=== PATIENT | male | born 1960 | race Caucasian/White ===

== ENCOUNTER 2021-08-04 08:43 | Outpatient (CLI) | payer BC, SELFPAY ==
--- NOTE | ~2021-08-04 | CT_ITS ---
EXAMINATION: CT lung screening EXAM DATE: 08/04/2021 09:00 INDICATION: Z72.0 - Tobacco use. TECHNIQUE: Spiral low dose CT of the chest without contrast. Axial, coronal and sagittal images were reviewed. The dose-length product (DLP) for this examination was 365.72 mGy-cm. The exposure was t ailored according to patient size (auto mA exposure control), and iterative reconstruction (ASIR) was used as additional dose reduction technique. Comparison is made to prior examination from 04/25/2019 . FINDINGS: Previously seen right upper lobe 3 mm nodule no longer identified. No new or suspicious pu lmonary nodules. Tracheobronchial tree is patent. There is no mediastinal, hilar or axillary lymph adenopathy. There are no pleural or pericardial effusions. There is no pneumothorax. Heart norm al in size. There is mild coronary arterial calcification, arterial sclerosis. Nodular liver contou r suspicious for cirrhosis. There is splenomegaly, probably portal hypertension. There is thoracic sp ondylosis without osteoblastic or osteolytic lesions identified. IMPRESSION: 1. Lung-RADS category 1S, benign appearance or behavior (<1% chance of malignancy); recommend continu ed LDCT screening in 1 year. 2. Cirrhosis, portal hypertension splenomegaly. Reviewed, dictated and finalized at location B. 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 Lung-RADS category 1S, benign appearance or behavior (<1% chance of malignan cy); recommend continued LDCT screening in 1 year. 2. Cirrhosis, portal hypertension splenomegaly.
== END 2021-08-04 08:44 | disposition home or self-care (01) ==
LOC: ANHIMG 08:45
PROVIDERS: PCP Internal Medicine; Visit Provider Nurse Practitioner
DX: Z12.2 Encounter for screening for malignant neoplasm of respiratory organs (principal); Z72.0 Tobacco use; K74.60 Unspecified cirrhosis of liver; K76.6 Portal hypertension; R16.1 Splenomegaly, not elsewhere classified
CPT/HCPCS: 71271

== ENCOUNTER 2021-08-14 01:27 | Day surgery (SDC) | payer BC, SELFPAY ==
[2021-07-31 13:12] VITALS: BMI 38.7
--- NOTE | 2021-08-13 14:33 | PM.HPGS ---
History of Present Illness History of Present Illness Consent: Risks, benefits, and alternatives have been discussed and questions answered. Patient agrees to proceed with procedure. Chief complaint: neoplasm screening Narrative: Jeremiah Anderson is a 61 year old male referred for colon cancer screening. Review of Systems Review of Systems: All systems reviewed & are unremarkable except as noted in HPI and below PMFSH Past Medical History Medical History Acid reflux Bronchitis Chicken pox Diabetes mellitus Heartburn HLD (hyperlipidemia) Hypertension Hypothyroidism Migraines Osteoarthritis Splenomegaly Thrombocytopenia Tobacco abuse Surgical History Surgical History History of cardiac cath S/P LASIK surgery of both eyes Family History Family History Sibling Patient's sister is in good health Mother Hypertension Myocardial infarction Heart disease Lung cancer Diabetes mellitus Father Lung cancer Social History Social History Smoking status: Current every day smoker Tobacco type: e-cigarettes/vaping Smoking end date: 06/28/11 Additional smoking assessment comments: Former cigarrette smoker now vapes Alcohol intake: current Alcohol use details: 2x weekly Substance use: never Living arrangements: with family Spiritual care concerns: No Meds Home Medications and Allergies Home Medications Medication Instructions Recorded Confirmed Type lisinopril 20 1 tablet PO DAILY #90 tablet 07/28/21 07/31/21 Rx mg-hydrochlorothiazide 25 mg tablet Allergies Allergy/AdvReac Type Severity Reaction Status Date / Time Penicillins Allergy Unknown Swelling Verified 08/14/21 09:08 of Lip/Tongue/Throat Exam Resp: Auscultation: clear to auscultation bilaterally Cardio: Rate: regular rate Rhythm: regular rhythm GI: GI Palp: Yes Soft to palpation and No Tenderness to palpation present (GI) Assessment and Plan Assessment and plan (1) Screening for colon cancer: Code(s): Z12.11 - Encounter for screening for malignant neoplasm of colon Status: Acute Assessment and Plan: Colonoscopy with possible biopsy or polypectomy or cautery or injection of substances.
[2021-08-14 09:09] VITALS: BP 144/75; PULSE 88; RESP 18; TEMP 36.2; O2SAT 99
[2021-08-14] MEDS: LACTATED RINGERS 1,000 ML 150 ML IV CONT (09:17)
--- NOTE | 2021-08-14 09:23 | WPDANESEPPF ---
Anes - Initial Pre Proc Eval Procedure: Operation Date: 08/14/21 10:15 Proposed Procedures p Screening Colonoscopy - Parviz Escalante MD Date/Time: 08/14/21 09:23 Surgeon: Parviz Escalante MD Pre Op Diagnosis: neoplasm screening Patient Data Age: 61 Gender: M Height: 1.7 m Weight: 110.1 kg Last Vital Signs Temp 36.2 C L 08/14/21 09:09 Pulse 88 08/14/21 09:09 Resp 18 08/14/21 09:09 BP 144/75 H 08/14/21 09:09 Pulse Ox 99 08/14/21 09:09 Allergies Allergy/AdvReac Type Severity Reaction Status Date / Time Penicillins Allergy Unknown Swelling Verified 08/14/21 09:08 of Lip/Tongue/Throat Home Medications Medication Instructions Recorded Confirmed Type lisinopril 20 1 tablet PO DAILY #90 tablet 07/28/21 07/31/21 Rx mg-hydrochlorothiazide 25 mg tablet Patient hx anesthesia problems: none Family hx anesthesia problems: none Results Review: All pre-operative results and documents have been reviewed as part of the pre-operative evaluation. [facility] Past Medical History Medical History Acid reflux Bronchitis Chicken pox Diabetes mellitus Heartburn HLD (hyperlipidemia) Hypertension Hypothyroidism Migraines Osteoarthritis Splenomegaly Thrombocytopenia Tobacco abuse Surgical History Surgical History History of cardiac cath S/P LASIK surgery of both eyes Family History Family History Sibling Patient's sister is in good health Mother Hypertension Myocardial infarction Heart disease Lung cancer Diabetes mellitus Father Lung cancer Social History Social History Smoking status: Current every day smoker Tobacco type: e-cigarettes/vaping Smoking end date: 06/28/11 Additional smoking assessment comments: Former cigarrette smoker now vapes Alcohol intake: current Alcohol use details: 2x weekly Substance use: never Living arrangements: with family Spiritual care concerns: No Anes - Eval Final PreProcedure Day of Procedure 08/14/21 09:23 Patient weight: obese Heart: regular rate and rhythm Lungs: clear to auscultation Airway: Mallampati scale class II Neurological: alert and oriented Last oral intake: >/= 8 hours ASA classification: II Emergent: no Anesthetic plan: proceed Anesthesia type and monitoring: general GIVS and standard monitoring Results Review: All pre-operative results and documents have been reviewed as part of the pre-operative evaluation. Informed Consent: The patient's anesthetic plan and its attendant risks and benefits were discussed with the patient/family/POA. Questions were solicited and answers provided to the satisfaction of the patient/family/POA.
[2021-08-14 10:22] VITALS: BP 95/54; PULSE 81; RESP 18; O2SAT 93
[2021-08-14 10:32] VITALS: BP 112/57; PULSE 82; RESP 24; O2SAT 98
[2021-08-14 10:42] VITALS: BP 102/61; PULSE 78; RESP 17; O2SAT 97
== END 2021-08-14 10:51 | disposition home or self-care (01) ==
PROVIDERS: PCP Internal Medicine; Visit Provider Internal Medicine Gastroenterology
PROC: 0DJD8ZZ Inspection of Lower Intestinal Tract, Via Natural or Artificial Opening Endoscopic (ICD-10-PCS; CPT 45378; principal; 2021-08-14 10:15)
DX: Z12.11 Encounter for screening for malignant neoplasm of colon (principal); K57.30 Diverticulosis of large intestine without perforation or abscess without bleeding; K64.8 Other hemorrhoids; E11.9 Type 2 diabetes mellitus without complications; E78.5 Hyperlipidemia, unspecified; I10 Essential (primary) hypertension; E03.9 Hypothyroidism, unspecified; M19.90 Unspecified osteoarthritis, unspecified site; R16.1 Splenomegaly, not elsewhere classified; D69.6 Thrombocytopenia, unspecified; F17.290 Nicotine dependence, other tobacco product, uncomplicated; E66.9 Obesity, unspecified; Z68.38 Body mass index [BMI] 38.0-38.9, adult
CPT/HCPCS: 45378; J2704; J7120

== ENCOUNTER 2021-08-16 08:24 | Outpatient (CLI) | payer BC, SELFPAY ==
--- NOTE | ~2021-08-16 | MR_ITS ---
EXAMINATION: MR cervical spine wo con EXAM DATE: 08/16/2021 09:13 INDICATION: Cervicalgia. TECHNIQUE: Multi-sequential, multiplanar MR images of the cervical spine were obtained without contra st. Axial T2, axial T2 MERGE sequence. Sagittal T1, T2, T2 fat saturation images also obtained. Th ere is no prior study for comparison. FINDINGS: There is moderate to severe disc disease C6-7, moderate at C5-6. The spinal cord signal in tensity and intrinsic morphology is normal. Cervicomedullary junction is normal in appearance. The ve rtebral bodies are aligned in the AP dimension. There are no suspicious marrow signal abnormalities. Paraspinal soft tissue is unremarkable. Level by level evaluation: C2-C3: Disc does not extend beyond the endplate margin. Uncovertebral joint arthropathy: Mild bilateral. Facet joint arthropathy: Mild bilateral. Neural foraminal stenosis: No stenosis. Central canal stenosis: No stenosis. C3-C4: Disc does not extend beyond the endplate margin. Uncovertebral joint arthropathy: Moderate left, mild to moderate right. Facet joint arthropathy: Moderate left, mild right. Neural foraminal stenosis: Moderate left, mild right. Central canal stenosis: No stenosis. C4-C5: There is a mild diffuse disc bulge. Uncovertebral joint arthropathy: Moderate left, mild to moderate right. Facet joint arthropathy: Moderate bilateral. Neural foraminal stenosis: Moderate left, mild to moderate right. Central canal stenosis: Mild. C5-C6: There is a mild diffuse disc bulge. Uncovertebral joint arthropathy: Moderate to severe left, moderate right. Facet joint arthropathy: Mild to moderate bilateral. Neural foraminal stenosis: Moderate to severe bilateral. Central canal stenosis: Mild. C6-C7: There is a mild diffuse disc bulge. Uncovertebral joint arthropathy: Moderate bilateral. Facet joint arthropathy: Mild bilateral. Neural foraminal stenosis: Mild to moderate right, mild left. Central canal stenosis: Mild. C7-T1: Disc does not extend beyond the endplate margin. Uncovertebral joint arthropathy: Mild left. Facet joint arthropathy: Mild bilateral. Neural foraminal stenosis: Mild left. Central canal stenosis: No stenosis. IMPRESSION: 1. Mid cervical predominant spondylosis as detailed above. Reviewed, dictated and finalized at location A. NT PATCHER
== END 2021-08-16 08:25 | disposition home or self-care (01) ==
LOC: ANHIMG 08:36
PROVIDERS: PCP Internal Medicine; Visit Provider Nurse Practitioner Family
DX: M54.2 Cervicalgia (principal); M47.812 Spondylosis without myelopathy or radiculopathy, cervical region
CPT/HCPCS: 72141

== ENCOUNTER 2021-08-21 08:35 | Outpatient (CLI) | payer BC, SELFPAY ==
--- NOTE | ~2021-08-21 | US_ITS ---
US abdomen limited INDICATION: Cirrhosis of the liver. PROCEDURE: Realtime right upper abdominal ultrasound. COMPARISON: No prior studies for comparison. FINDINGS: The pancreas is normal without focal mass or pancreatic ductal dilation. Liver echotexture is normal without focal mass or intrahepatic biliary dilatation. There is normal directional flow i n the portal vein. The gallbladder is normal without stones, or pericholecystic fluid. There is mild gallbladder wall th ickening measuring 0.3 cm. Common bile duct measures 5 mm. No sonographic Mckee's sign. IMPRESSION: 1: Mild gallbladder wall thickening. This could indicate interstitial edema, chronic liver disease or chronic cholecystitis. Reviewed, dictated and finalized at location B. 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 This could indicate interstitial edema, ch ronic liver disease or chronic cholecystitis.
== END 2021-08-21 08:36 | disposition home or self-care (01) ==
LOC: ANHIMG 08:37
PROVIDERS: PCP Internal Medicine; Visit Provider Nurse Practitioner
DX: K74.60 Unspecified cirrhosis of liver (principal); R93.89 Abnormal findings on diagnostic imaging of other specified body structures
CPT/HCPCS: 76705

== ENCOUNTER 2021-11-19 00:59 | Day surgery (SDC) | payer BC, SELFPAY ==
[2021-11-05 11:59] VITALS: BMI 37.6
--- NOTE | 2021-11-18 17:25 | PM.HPGS ---
History of Present Illness History of Present Illness Consent: Risks, benefits, and alternatives have been discussed and questions answered. Patient agrees to proceed with procedure. Chief complaint: DHRUV Narrative: Jeremiah Anderson is a 61 year old male who has iron deficiency anemia. He is followed by Hematology at [facility]. He also has ITP. A recent colonoscopy was unremarkable Review of Systems Review of Systems: All systems reviewed & are unremarkable except as noted in HPI and below PMFSH Past Medical History Medical History (Updated 11/18/21 @ 17:26 by Parviz Escalante MD) Acid reflux Bronchitis Chicken pox Diabetes mellitus Dysuria Heartburn HLD (hyperlipidemia) Hypertension Hypothyroidism Migraines Osteoarthritis Splenomegaly Thrombocytopenia Tobacco abuse Surgical History Surgical History History of cardiac cath S/P LASIK surgery of both eyes Family History Family History Sibling Patient's sister is in good health Mother Hypertension Myocardial infarction Heart disease Lung cancer Diabetes mellitus Father Lung cancer Social History Social History Smoking packs per day: 1.5 Smoking cigarettes per day: 30.0 Years smoked: 30 Smoking pack-years: 45.00 Smoking status: Former smoker Tobacco type: cigarettes and e-cigarettes/vaping Smoking end date: 06/28/11 Additional smoking assessment comments: currently vapes Alcohol intake: current Drinks per week: 10 Alcohol use details: 8-10 beers a week - on weekends Substance use: never Substance use type: does not use Living arrangements: with family Spiritual care concerns: No Meds Home Medications and Allergies Home Medications Medication Instructions Recorded Confirmed Type lisinopril 20 1 tablet PO DAILY #90 tabs 07/28/21 11/19/21 Rx mg-hydrochlorothiazide 25 mg tablet Allergies Allergy/AdvReac Type Severity Reaction Status Date / Time Penicillins Allergy Unknown Swelling Verified 11/19/21 07:51 of Lip/Tongue/Throat Exam Const: General: alert Orientation/consciousness: patient oriented x3 Resp: Auscultation: clear to auscultation bilaterally Cardio: Rhythm: regular rhythm GI: GI Palp: Yes Soft to palpation and No Tenderness to palpation present (GI) Neuro: General: patient oriented x3 Assessment and Plan Assessment and plan (1) Iron deficiency anemia: Code(s): D50.9 - Iron deficiency anemia, unspecified Status: Acute Assessment and Plan: EGD with possible biopsy or dilatation or cautery.
[2021-11-19 07:55] VITALS: BP 148/64; PULSE 75; RESP 20; TEMP 36.5; O2SAT 100
[2021-11-19] MEDS: LACTATED RINGERS 1,000 ML 150 ML IV CONT (08:02)
--- NOTE | 2021-11-19 08:54 | P.PNAN_ITS ---
Anes - Initial Pre Proc Eval Procedure: Operation Date: 11/19/21 09:00 Proposed Procedures p Esophagogastroduodenoscopy - Parviz Escalante MD Date/Time: 11/19/21 08:54 Surgeon: Parviz Escalante MD Pre Op Diagnosis: DHRUV Patient Data Age: 61 Gender: M Height: 1.7 m Weight: 111.7 kg Last Vital Signs Temp 97.7 F 11/19/21 07:55 Pulse 75 11/19/21 07:55 Resp 20 11/19/21 07:55 BP 148/64 H 11/19/21 07:55 Pulse Ox 100 11/19/21 07:55 O2 Del Method Room Air 11/19/21 07:55 Allergies Allergy/AdvReac Type Severity Reaction Status Date / Time Penicillins Allergy Unknown Swelling Verified 11/19/21 07:51 of Lip/Tongue/Throat Home Medications Medication Instructions Recorded Confirmed Type lisinopril 20 1 tablet PO DAILY #90 tabs 07/28/21 11/19/21 Rx mg-hydrochlorothiazide 25 mg tablet Patient hx anesthesia problems: none Family hx anesthesia problems: none Results Review: All pre-operative results and documents have been reviewed as part of the pre- operative evaluation. [facility] Past Medical History Medical History (Updated 11/18/21 @ 17:26 by Parviz Escalante MD) Acid reflux Bronchitis Chicken pox Diabetes mellitus Dysuria Heartburn HLD (hyperlipidemia) Hypertension Hypothyroidism Migraines Osteoarthritis Splenomegaly Thrombocytopenia Tobacco abuse Surgical History Surgical History History of cardiac cath S/P LASIK surgery of both eyes Family History Family History Sibling Patient's sister is in good health Mother Hypertension Myocardial infarction Heart disease Lung cancer Diabetes mellitus Father Lung cancer Social History Social History Smoking packs per day: 1.5 Smoking cigarettes per day: 30.0 Years smoked: 30 Smoking pack-years: 45.00 Smoking status: Former smoker Tobacco type: cigarettes and e-cigarettes/vaping Smoking end date: 06/28/11 Additional smoking assessment comments: currently vapes Alcohol intake: current Drinks per week: 10 Alcohol use details: 8-10 beers a week - on weekends Substance use: never Substance use type: does not use Living arrangements: with family Spiritual care concerns: No Anes - Eval Final PreProcedure Day of Procedure 11/19/21 08:54 Patient weight: obese Heart: regular rate and rhythm Lungs: clear to auscultation Airway: Mallampati scale class II Neurological: alert and oriented Last oral intake: >/= 8 hours ASA classification: III Emergent: no Anesthetic plan: proceed Anesthesia type and monitoring: general GIVS Results Review: All pre-operative results and documents have been reviewed as part of the pre- operative evaluation. Informed Consent: The patient's anesthetic plan and its attendant risks and benefits were discussed with the patient/family/POA. Questions were solicited and answers provided to the satisfaction of the patient/family/POA.
[2021-11-19 09:15] VITALS: BP 122/78; PULSE 78; RESP 16; O2SAT 97
[2021-11-19 09:25] VITALS: BP 105/64; PULSE 76; RESP 16; O2SAT 98
[2021-11-19 09:35] VITALS: BP 122/73; PULSE 74; RESP 16; O2SAT 99
--- NOTE | 2021-11-19 09:47 | SUR.PHASEII ---
Dr. Escalante aware of positive H. pylori results.
== END 2021-11-19 09:59 | disposition home or self-care (01) ==
PROVIDERS: PCP Internal Medicine; Visit Provider Internal Medicine Gastroenterology
PROC: 0DJ08ZZ Inspection of Upper Intestinal Tract, Via Natural or Artificial Opening Endoscopic (ICD-10-PCS; CPT 43235; principal; 2021-11-19 09:00)
DX: D50.9 Iron deficiency anemia, unspecified (principal); K29.00 Acute gastritis without bleeding; K29.50 Unspecified chronic gastritis without bleeding; B96.81 Helicobacter pylori [H. pylori] as the cause of diseases classified elsewhere; K21.9 Gastro-esophageal reflux disease without esophagitis; I10 Essential (primary) hypertension; D69.6 Thrombocytopenia, unspecified; E11.9 Type 2 diabetes mellitus without complications; E78.5 Hyperlipidemia, unspecified; E03.9 Hypothyroidism, unspecified; M19.90 Unspecified osteoarthritis, unspecified site; F17.290 Nicotine dependence, other tobacco product, uncomplicated
CPT/HCPCS: 43239; 87081; 88305; J2704; J7120

== ENCOUNTER 2022-08-12 13:17 | Outpatient (CLI) | payer BC, SELFPAY ==
--- NOTE | ~2022-08-12 | CT_ITS ---
EXAMINATION: CT lung screening DATE: 08/12/2022 13:33 INDICATION: Personal history of nicotine dependence, current smoker with 30 pack year history TECHNIQUE: Computed tomography (CT) of the chest was performed without intravenous contrast. The dose -length product (DLP) was 385.02 mGy-cm. 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 COMPARISON: 08/04/2021 FINDINGS: There is mild emphysema. There is a stable 4 mm nodule abutting the major fissure in the le ft lower lobe. The lungs are free of acute opacities. No pleural effusion or pneumothorax. No patholo gically enlarged thoracic lymph nodes are identified. The heart size is normal. There is calcified co ronary artery atherosclerosis. There is mild thoracic spondylosis. Cirrhosis and splenomegaly are aga in noted. IMPRESSION: 1. Lung-RADS category 1: Negative. Continue annual screening with noncontrast low-dose chest CT in 12 months. Reviewed, dictated and finalized at location B. SIGN WRITER IMPRESSION: 1. Lung-RADS category 1: Negative. Continue annual screening with noncontrast l ow-dose chest CT in 12 months.
== END 2022-08-12 13:18 | disposition home or self-care (01) ==
PROVIDERS: PCP Internal Medicine; Visit Provider Nurse Practitioner
DX: Z12.2 Encounter for screening for malignant neoplasm of respiratory organs (principal); F17.210 Nicotine dependence, cigarettes, uncomplicated
CPT/HCPCS: 71271

== ENCOUNTER 2022-08-21 08:37 | Emergency (ER) | payer BC, SELFPAY ==
[2022-08-21] VITALS (9 sets, daily range): BP systolic 127–178; BP diastolic 70–79; PULSE 81–100; RESP 15–20; TEMP 36.7; O2SAT 97–100
--- NOTE | ~2022-08-21 | XR_ITS ---
EXAMINATION: XR chest 2V 08/21/2022 09:26 INDICATION: Midsternal chest pain PROCEDURE: 2 view chest COMPARISON: No prior studies for comparison. FINDINGS: The lungs are clear. The cardiomediastinal silhouette is within normal limits. There are no pleural effusions. There is no pneumothorax suspected. IMPRESSION: 1: NO ACUTE CARDIOPULMONARY DISEASE. Reviewed, dictated and finalized at location B. 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
--- NOTE | 2022-08-21 08:39 | ECG_ITS ---
Measurements Intervals [place] Rate: 87 P: -2 TN: 132 QRS: 4 QRSD: 90 T: 56 QT: 340 QTc: 410 Interpretive Statements SINUS RHYTHM WITHIN NORMAL LIMITS NO PREVIOUS ECG AVAILABLE FOR COMPARISON Electronically Signed On 08-21-2022 15:26:11 BREAKFAST SUPERVISOR by Adolph Lew M.D.
[2022-08-21 09:17] LABS: Basophils Percent Auto 0.7 % (0.2-1.2); Eosinophils Absolute Auto 0.1 K/mm3 (0-0.3); Eosinophils Percent Auto 1.4 % (0-4.4); Hematocrit 42.2 % (42.0-52.0); Immature Granulocyte Absolute 0.01 K/mm3 (0.00-0.031); Immature Granulocyte Percent A 0.2 % (0-0.5); Lymphocytes Absolute Auto 0.95 K/mm3 (0.9-3.2); Lymphocytes Percent Auto 21.8 % (18.3-44.2); Mean Corpuscular HGB Conc 33.2 g/dl (32-36); Mean Corpuscular Volume 84.4 fl (80-100); Monocytes Absolute Auto 0.3 K/mm3 (0.1-0.6); Monocytes Percent Auto 5.7 % (2.6-8.5); Neutrophils Absolute Auto 3.1 K/mm3 (1.3-6.7); Neutrophils Percent Auto 70.2 % (45.5-73.1); White Blood Count 4.4 K/mm3 (4.5-10.0)
[2022-08-21 09:29] LABS: Alanine Aminotransferase 27 U/L (6-50); Albumin Level 4.7 g/dL (3.5-5.1); Alkaline Phosphatase 92 U/L (38-126); Anion Gap 8 mmol/L (8-16); Aspartate Amino Transferase 26 U/L (17-59); Bilirubin,Total 0.9 mg/dL (0.2-1.3); Blood Urea Nitrogen 14 mg/dL (9-20); Calcium 8.4 mg/dL (8.4-10.2); Carbon Dioxide 29 mmol/L (22-30); Chloride 98 mmol/L (98-107); Estimated CRCL calculation 81 ml/min; Estimated Glomerular Filt Rate > 60; Glucose 204 mg/dL (65-110); Lipase 83 U/L (23-300); Potassium 3.6 mmol/L (3.4-5.0); Sodium 135 mmol/L (137-145)
[2022-08-21 09:34] LABS: INR 1.1; Partial Thromboplastin Time 27.7 SECONDS (22.3-36.8); Prothrombin Time 14.1 Seconds (11.1-14.7)
[2022-08-21 09:41] LABS: Troponin I < 0.012 ng/mL (0.000-0.034)
--- NOTE | 2022-08-21 11:05 | PC.NURSE ---
Report received from Ni ROCA at this time including history and physical and plan of care
[2022-08-21] MEDS: ASPIRIN 81 MG CHEWABLE TABLET 324 MG PO (11:09)
[2022-08-21 13:24] LABS: Troponin I < 0.012 ng/mL (0.000-0.034)
--- NOTE | 2022-08-21 13:44 | ED.CHESTPAIN ---
HPI - Chest Pain General Chief Complaint: Chest Pain Stated Complaint: chest pain Time Seen by Provider: 08/21/22 10:44 History of Present Illness HPI narrative: Patient is a 62-year-old male who presents ER with chest pain. Persistent for the last week. Center of his chest. No real radiation into the back or neck. No exertional component but did feel little bit worse yesterday after work. Reports he had a little bit of shortness of breath with exerting himself yesterday. He is also been getting dizzy when he goes from lying to sitting. Today he was still occurring so he told his boss he is going to come be evaluated. No fevers or chills or sweats. No productive cough. No history of coronary disease. Had a cardiac catheterization many years ago that was negative for coronary disease. Related Data Home Medications Medication Instructions Recorded Confirmed cyclobenzaprine 10 mg tablet 10 mg PO TID PRN 01/19/22 08/03/22 naproxen sodium 220 mg tablet 220 mg PO BID PRN 01/19/22 08/03/22 (Aleve) omeprazole 40 mg capsule,delayed 20 mg PO BID PRN 01/19/22 08/03/22 release Allergies Allergy/AdvReac Type Severity Reaction Status Date / Time Penicillins Allergy Unknown Swelling Verified 08/21/22 10:57 of Lip/Tongue/Throat Review of Systems Review of Systems: All systems reviewed & are unremarkable except as noted in HPI and below Constitutional: Constitutional: Denies chills and Denies fever(s) ENT: Denies nasal congestion and Denies sore throat Cardiovascular: Cardiovascular: Reports chest pain, Denies rapid heart rate and Denies radiating jaw, neck or arm pain Respiratory: Respiratory: Denies cough and Denies dyspnea Gastrointestinal: Gastrointestinal: Denies abdominal pain, Denies nausea and Denies vomiting Neurologic: Reports dizziness, Denies syncope, Denies focal weakness and Denies numbness [facility] Past Medical History Medical History (Updated 08/21/22 @ 13:46 by Everardo Reyna MD) Acid reflux Bronchitis Chicken pox Diabetes mellitus Dysuria Heartburn HLD (hyperlipidemia) Hyperlipidemia associated with type 2 diabetes mellitus Hypertension Hypothyroidism Migraines Morbid obesity due to excess calories Osteoarthritis Secondary portal hypertension Splenomegaly Thrombocytopenia Tobacco abuse Surgical History Surgical History History of cardiac cath S/P LASIK surgery of both eyes Family History Family History Sibling Patient's sister is in good health Mother Hypertension Myocardial infarction Heart disease Lung cancer Diabetes mellitus Father Lung cancer Social History Social History (Updated 08/03/22 @ 09:47 by Ariane Salazar CMA) Smoking packs per day: 1.5 Smoking cigarettes per day: 30.0 Years smoked: 30 Smoking pack-years: 45.00 Smoking status: Current some day smoker Tobacco type: cigarettes and e-cigarettes/vaping Smoking end date: 06/28/11 Additional smoking assessment comments: currently vapes Alcohol intake: current Drinks per week: 10 Alcohol use details: 8-10 beers a week - on weekends Substance use: never Substance use type: does not use Lack of Transportation: No Lack of Food: Never True Current Housing: I Have Housing Concerned About Future Housing: No Difficulty Paying Gas/Electric Bills: No Difficulty Paying for Meds: No Currently Unemployed: No Education: High School Diploma/GED Difficulty w/ Childcare or Family Care: No Living arrangements: with family Spiritual care concerns: No Exam Narrative: GENERAL: Well-appearing, well-nourished, and in no acute distress. HEAD: Normocephalic, atraumatic. EYES: PERRL and EOMI. ENT: Mucous membranes moist. CHEST: Clear to auscultation. No respiratory distress. HEART: Regular rate and rhythm. Normal peripheral pulses. ABDOMEN: Soft, n
== END 2022-08-21 15:36 | disposition home or self-care (01) ==
PROVIDERS: Emergency Provider Emergency Medicine; PCP Internal Medicine
DX: R07.9 Chest pain, unspecified (principal); E11.69 Type 2 diabetes mellitus with other specified complication; E78.49 Other hyperlipidemia; I10 Essential (primary) hypertension; E03.9 Hypothyroidism, unspecified; M19.90 Unspecified osteoarthritis, unspecified site; K21.9 Gastro-esophageal reflux disease without esophagitis; K76.6 Portal hypertension; E66.09 Other obesity due to excess calories; Z68.38 Body mass index [BMI] 38.0-38.9, adult; F17.290 Nicotine dependence, other tobacco product, uncomplicated
CPT/HCPCS: 36415; 71046; 80053; 83690; 84484; 85025; 85610; 85730; 93005; 99283; A9270

== ENCOUNTER 2023-06-17 06:37 | Outpatient (CLI) | payer BC, SELFPAY ==
--- NOTE | ~2023-06-17 | MR_ITS ---
MRI of the brain Clinical History: Dizziness Technique: Axial and sagittal T1-weighted images were acquired. These were followed by axial T2-weigh karla, diffusion weighted, gradient, and FLAIR images. Following intravenous administration of 20 cc Mu ltiHance gadolinium, T1-weighted fat-sat imaging was performed in the axial and coronal planes. Findings: There is no abnormal signal in the brain parenchyma. No acute infarct, internal hemorrhage, or mass lesion identified. Ventricles and subarachnoid spaces are unremarkable. Orbits are unremarkable. Paranasal sinuses and m astoid air cells are clear. Major intracranial flow voids are intact. Sagittal midline structures are intact. No abnormal postcontrast enhancement identified. IMPRESSION: Unremarkable exam. Reviewed, dictated and finalized at location M. LLERY OR NAVAL GUNFIRE OBSERVER IMPRESSION: Unremarkable exam.
== END 2023-06-17 06:38 | disposition home or self-care (01) ==
PROVIDERS: PCP Internal Medicine; Visit Provider Nurse Practitioner
DX: R51.9 Headache, unspecified (principal); H53.8 Other visual disturbances
CPT/HCPCS: 70553; A9577

== ENCOUNTER 2023-08-31 06:46 | Outpatient (CLI) | payer BC, SELFPAY ==
--- NOTE | ~2023-08-31 | CT_ITS ---
EXAMINATION: CT lung screening DATE: 08/31/2023 07:06 INDICATION: Personal history of nicotine dependence, current smoker with 35 pack year history TECHNIQUE: Computed tomography (CT) of the chest was performed without intravenous contrast. The dose -length product (DLP) was 286.03 mGy-cm. 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 COMPARISON: 08/12/2022 FINDINGS: There is mild emphysema. Again noted is a stable 4 mm nodule abutting the major fissure in the left lower lobe. No new pulmonary nodules are identified. The lungs are free of acute opacities. No pleural effusion or pneumothorax. No pathologically enlarged thoracic lymph nodes are identified. The heart size is normal. Calcified coronary artery atherosclerosis is noted. There is mild thoracic spondylosis. Cirrhosis and splenomegaly are again noted. IMPRESSION: 1. Lung-RADS category 1: Negative. Continue annual screening with noncontrast low-dose chest CT in 12 months. Reviewed, dictated and finalized at location L. ET ATTENDANT IMPRESSION: 1. Lung-RADS category 1: Negative. Continue annual screening with noncontrast l ow-dose chest CT in 12 months.
== END 2023-08-31 06:47 | disposition home or self-care (01) ==
PROVIDERS: PCP Internal Medicine; Visit Provider Nurse Practitioner
DX: Z12.2 Encounter for screening for malignant neoplasm of respiratory organs (principal); F17.210 Nicotine dependence, cigarettes, uncomplicated
CPT/HCPCS: 71271

== ENCOUNTER 2024-09-02 08:05 | Outpatient (CLI) | payer BC, SELFPAY ==
--- NOTE | ~2024-09-02 | CT_ITS ---
EXAMINATION:CT lung screening DATE: 09/02/2024 08:42 INDICATION: Persistent nicotine dependence. Smoker who quit 5 years ago with 36 pack year history. TECHNIQUE: Computed tomography (CT) of the chest was performed without intravenous contrast. Automate d exposure control and iterative reconstruction technique were employed. The dose-length product (DLP ) was 313.19 mGy-cm. COMPARISON: Chest CT 08/31/2023 FINDINGS: There is a 4 mm nodule at left major fissure without change. A calcified left lung nodule i s consistent with old granulomatous disease. No pleural effusion. The heart size is normal. There are coronary artery calcifications. No pericardial effusion. The liver demonstrates surface nodularity, consistent with cirrhosis. There is mild splenomegaly. There is mild bilateral gynecomastia. There is severe cervical spondylosis and mild thoracic spondylosis. IMPRESSION: 1. Lung-RADS category 2S: Benign appearance or behavior. Continue annual screening with noncontrast l ow-dose chest CT in 12 months. 2. Cirrhosis of the liver with portal venous hypertension. Reviewed, dictated and finalized at location A. DRESSER IMPRESSION: 1. Lung-RADS category 2S: Benign appearance or behavior. Continue annual screen ing with noncontrast low-dose chest CT in 12 months. 2. Cirrhosis of the liver with portal venous hypertension.
== END 2024-09-02 08:06 | disposition home or self-care (01) ==
PROVIDERS: PCP Internal Medicine; Visit Provider Nurse Practitioner
DX: Z12.2 Encounter for screening for malignant neoplasm of respiratory organs (principal); Z87.891 Personal history of nicotine dependence; K76.6 Portal hypertension; K74.60 Unspecified cirrhosis of liver
CPT/HCPCS: 71271

== ENCOUNTER 2024-09-15 07:47 | Outpatient (CLI) | payer BC, SELFPAY ==
--- NOTE | ~2024-09-15 | CT_ITS ---
CT of the Abdomen: Indication: Cirrhosis Technique: 2.5 mm axial scans were obtained through the abdomen prior to and following intravenous a dministration of 100 cc of Omnipaque 350. Dose reduction technique was used on this scan by utilizing automated exposure control and iterative reconstruction technique. The dose-length product (DLP) was 2610.39 mGy-cm. Findings: Scans through the lung bases are unremarkable. Nodular contour of liver is compatible cirrhosis. No focal mass or biliary dilatation. Spleen is enla rged, measuring 16 cm in length. The pancreas, gallbladder, adrenals and kidneys are within normal li mits. There are mild atherosclerotic calcifications of the aorta. No lymphadenopathy. Visualized bowel loops are unremarkable. No ascites. Impression: Cirrhotic morphology of liver with associated splenomegaly. No suspicious hepatic mass identified. Reviewed, dictated and finalized at [facility]. Impression: Cirrhotic morphology of liver with associated splenomegaly. No suspicious hepat ic mass identified.
--- OUTSIDE RECORDS SUMMARY | 2024-09-15 07:51 | XMS_ITS | Clinical Summary ---
Author Organization [facility] Address [address] [place] [address] Care Team Providers Care Catalog Librarian Name Role Phone Unavailable Primary Care Provider Unavailabl e Social History Tobacco Use Types Packs/Day Years Used Date Smoking Tobacco: Never Assessed Sex and Gender Information Value Date Recorded Sex Assigned at Not on file Legal Sex Male 4:22 PM CDT Gender Identity Not on file Sexual Orientation Not on file Last Filed Vital Signs Vital Sign Reading Time Taken Comments Blood Pressure 152/82 11/14/2013 11:17 AM CDT Pulse - - Temperature - - Respiratory Rate - - Oxygen Saturation - - Inhaled Oxygen Concentration - - Weight 130.6 kg (288 lb) 11/14/2013 11:17 AM CDT Height 172.7 cm (5' 8 ) 11/14/2013 11:17 AM CDT Body Mass Index 43.79 11/14/2013 11:17 AM CDT Plan of Treatment Health Maintenance Due Date Last Done Comments Annual Physical 1963 Hepatitis C 1979 Zoster Vaccines (1 of 2) 2011 DTaP, Tdap and Td Vaccines ( 2 - Td or Tdap) 08/18/2021 08/18/2011 Colorectal Cancer Screening Colonoscopy (10 Years) 09/24/2021 09/25/2011, 08/27/2011 COVID-19 Vaccine ( - 2023-2 5 season) 2024 Influenza Adult (#1) 2024 04/19/2012 RSV Immunization or 60+ Years (1 - 1-dose 75+ series) 2036 Meningococcal B Vaccine Aged Out No l onger eligible based on patient's age to complete this topic Meningococcal Vaccine Aged Out No yoshi adam eligible based on patient's age to complete this topic Pneumococcal Vaccine: Pediatrics (0 to 5 Years) and At-Risk Patients (6 to 64 Years) Aged Out No longer eligible b ased on patient's age to complete this topic RSV Immunizations Under 20 Months Aged Out No longer eligible b ased on patient's age to complete this topic Procedures Procedure Name Priority Date/Time Associated Diagnosis Comments COLONOSCOPY Routine 09/25/2011 12:00 AM CDT from Last 3 Months or Most Recently Relevant to Health Maintenance Results * Colonoscopy (09/25/2011 12:00 AM CDT) 09/25/2011 09/25/2011 Narrative TOUCHWORKS TO EPIC CONVERSION - 09/25/2011 12:00 AM CDT Documented hx of procedure Procedure Note , Generic Conversion, - 09/15/2018 Documented hx of procedure us Generic Conversion Md CAREY GI PROCEDURE ORDERABLES Final Result TOUCHWORKS TO EPIC CONVERSION from Last 3 Months or Most Recently Relevant to Health Maintenance
--- OUTSIDE RECORDS SUMMARY | 2024-09-15 07:51 | XMS_ITS | CONTINUITY OF CARE DOCUMENT ---
Author Name lisa careyemma Address Unknown Organization [facility] Address [address] [place] [address] [address] [place] [address] Phone [phone] Care Team Providers Care Pelletizer Name Role Phone Uche CAREY, Suze Unavailable ROC CAREY, AHSAN Unavailable RADHA BLUM MD, TUNDE Unavailable [phone] INSURANCE PROVIDERS Payer name Policy type / Coverage type Yutan red republican ID BLUE [facility] Blue [facility] [id number]
--- OUTSIDE RECORDS SUMMARY | 2024-09-15 07:51 | XMS_ITS | Referral Summary ---
Author Organization [facility] 8 [facility] Address [address] [place] [address] Phone Care Team Providers Care Artist Color Separation Name Role Phone Douglas Cordova DO Primary Care Provider [phone] Jeremiah Foster MD Unavailable [phone] Encounters Date Type Department Care Team Description 06/23/2024 Telephone [facility] Hematology [facility] Floor [address] [place] [address] Jodee Infante from Last 3 Months Allergies Active Allergy Reactions Criticality Noted Date Comments Penicillins Hives Medium 10/01/2015 Medications lisinopril-hydr oCHLOROthiazide (PRINZIDE,ZESTO RETIC) 20-25 mg per tablet 0 9 Active naproxen (ALEVE) 220 mg tablet As needed 7 Active ferrous sulfate 325 mg (65 mg of elemental iron) tabletIndicatio ns:Iron Deficiency Anemia Take 1 tablet (325 mg total) by mouth daily with breakfast 30 tablet 11 4 01/14/20 25 Active Active Problems Problem Noted Date Diagnosed Date Iron deficiency anemia 11/28/2021 Thrombocytopenia, unspecified 08/25/2018 Disorder involving thrombocytopenia 08/25/2016 Immunizations Immunization Administration Dates Next Due Influenza, Quadrivalent, Lillian l Culture-based MDCK, Preservative Free, Antibiotic Free, Intramuscular 04/27/2023 Influenza, Quadrivalent, Spl it, Preservative Free, Intramuscular 04/21/2021,04/01/2020,04/08/2019,04/09 Influenza, Trivalent, IM (MDV) 04/16/2014,2012,04/19/2012 Influenza, Trivalent, Preser vative Free, Intramuscular 04/09/2015 Influenza, Unspecified 03/31/2022,2016,02/04/2016,01/21,10/29/2015,10/01/2015 Moderna SARS-CoV-2 Monovalen t Vaccination (12+ YRS) 09/06/2020,08/09/2020 Moderna Sars-cov-2 Bivalent Vaccine 50 Mcg/0.5 mL (12+ YRS)-Blue/Malhotra 04/27/2022 Tdap 07/28/2021 ZOSTER LIVE 08/25/2016, 6,01/22/2016,10/28,10/01/2015 Social History Tobacco Use Types Packs/Day Years Used Date Smoking Tobacco: Former Cigarettes 2 32 0 08/31/1979 - 08/27/2011 E-cigarettes Vaping Smokeless Tobacco: Current Tobacco Cessation:Ready to Q uit: No Comments:pt uses vapor Alcohol Use Standard Drinks/Week Comments Yes 5 (1 standard drink = 0.6 oz pur e alcohol) AUDIT-C Answer Date Recorded Frequency of Alcohol Consumption Not on file 01/03/2024 Q2: How many drinks containi ng alcohol do you have on a typical day when you are drinking? 1 or 2 01/03/2024 Q3: How often do you have si x or more drinks on one occasion? 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 OFFSET PRESS FEEDER Gender Identity Not on file Sexual Orientation Not on file Last Filed Vital Signs Vital Sign Reading Time Taken Comments Blood Pressure 118/73 01/03/2024 9:00 AM CDT Pulse 76 01/03/2024 9:00 AM CDT Temperature 37.3 C (99.1 F) 01/03/2024 9:00 AM CDT Respiratory Rate 18 01/03/2024 9:00 AM CDT Oxygen Saturation 97% 01/03/2024 9:00 AM CDT Inhaled Oxygen Concentration - - Weight 113 kg (249 lb 3.2 oz) 01/03/2024 9:00 AM CDT Height 170.2 cm (5' 7 ) 08/17/2023 10:25 AM WEB OFFSET PRESS FEEDER Body Mass Index 39.03 08/17/2023 10:25 AM WEB OFFSET PRESS FEEDER Plan of Treatment Not on file Procedures Procedure Name Priority Date/Time Associated Diagnosis Comments HEPATITIS PANEL, ACUTE Routine 08/25/2019 2:03 PM WEB OFFSET PRESS FEEDER Thrombocytopenia, unspecified Disorder involving thrombocytopenia from Last 3 Months or Most Recently Relevant to Health Maintenance Results * Hepatitis panel, acute (08/25/2019 2:03 PM WEB OFFSET PRESS FEEDER) Hep A IgM Negative Negative [facility] - 01 HepBsAg Negative Negative [facility] - 01 Hep B core IgM Negative Negative [facility] - 01 Hep C Ab <0.1 0.0 - 0.9 s/co ratio [facility] - 01 Comment: Negative: < 0.8 Indeterminate: 0.8 - 0.9 Positive: > 0.9 The CDC recommends that a positive HCV antibody result be followed up with a HCV Nucleic Acid Amplification test (589726). Blood specimen (specimen) 08/25/2019 2:03 PM WEB OFFSET PRESS FEEDER 08/25/2019 Narrative [facility] - 08/26/2019 7:08 AM WEB OFFSET PRESS FEEDER Performed at: 01 - [facility] [id number] Finishing Trimmer: Marv Jaquez PhD, Phone: [phone] Solomon Kramer MD LAB MICROBIOLOGY - GENERAL ORD ERABLES Final Result [facility] - 01 from Last 3 Months or Most Recently Relevant to Health Maintenance Insurance [facility] Care Teams Artist Color Separation Relationship Specialty Start Date End Date Douglas Cordova DO PCP - General Internal Medicine 08/30/18 Jeremiah Foster MD Referring Physician Gastroenterology 10/06/19
--- OUTSIDE RECORDS SUMMARY | 2024-09-15 07:51 | XMS_ITS | Clinical Summary ---
Author Organization [facility] 8 [facility] Address [address] [facility] [address] [place] [address] Phone Care Team Providers Care Tongue And Groove Machine Operator Name Role Phone Douglas Cordova DO Primary Care Provider [phone] Jeremiah Foster MD Unavailable [phone] Allergies Active Allergy Reactions Criticality Noted Date [...] Thrombocytopenia, unspecified 08/25/2018 Disorder involving thrombocytopenia 08/25/2016 Encounters Date Type Department Care Team Description 06/23/2024 Telephone [facility] Hematology [facility] [place] Floor [address] [place] [address] Jodee Infante from Last 3 Months Immunizations Immunization Administration Dates Next Due Influenza, [...] 04/27/2022 Tdap 07/28/2021 ZOSTER LIVE 08/25/2016, 6,01/22/2016,10/28,10/01/2015 Surgical History Surgery Date Site/Laterality Comments COLONOSCOPY 07/29/2021 - 08/25/2021 Medical History Medical History Date Comments Hypertension Diabetes mellitus (HCC) Thrombocytopenia Family History Medical History Relation Name Comments Lung cancer Father Lung cancer Mother Relation Name Status Comments Father Mother Social History Tobacco Use Types Packs/Day Years [...] on file Legal Sex Male 12:09 PM MECHANICAL ORDNANCE ASSEMBLER Gender Identity Not on file Sexual Orientation Not on file Obstetrics History Last Filed Vital Signs Vital Sign Reading [...] cm (5' 7 ) 08/17/2023 10:25 AM MECHANICAL ORDNANCE ASSEMBLER Body Mass Index 39.03 08/17/2023 10:25 AM MECHANICAL ORDNANCE ASSEMBLER Plan of Treatment Health Maintenance Due Date Last Done Comments Colon Cancer Screening-Colonoscopy 1961 Depression Screening 1961 Prostate Cancer Screening-PSA 1961 Hepatitis B Screening 1979 Regular Well Visit/Exam 18-64 1979 Lung Cancer Screening 2011 Zoster Vaccine (2 of 3) 10/20/2016 08/25/19 17, 02/04/2016, 01/22/2016, Additional history exists Covid-19 Vaccine ( season) 2024 04/27/2022, 05/26/2021, 09/06/2020, Additional history exists Influenza Vaccine (#1) 2024 3, 03/31/2022, 04/21/2021, Additional history exists DTaP/Tdap/Td Vaccine (2 - Td or Tdap) 07/28/2031 07/28/2021 Hepatitis C Screening Completed 08/25/2019 Pneumococcal vaccine <65 Aged Out No longer eligible based on patient's age to complete this topic Procedures Procedure Name Priority Date/Time Associated Diagnosis Comments HEPATITIS PANEL, ACUTE Routine 08/25/2019 2:03 PM MECHANICAL ORDNANCE ASSEMBLER Thrombocytopenia, unspecified Disorder involving thrombocytopenia from Last 3 Months or Most Recently Relevant to Health Maintenance Results * Hepatitis panel, acute (08/25/2019 2:03 PM MECHANICAL ORDNANCE ASSEMBLER) Hep A IgM Negative Negative [facility] - [...] with a HCV Nucleic Acid Amplification test ([id number]). Blood specimen (specimen) 08/25/2019 2:03 PM MECHANICAL ORDNANCE ASSEMBLER 08/25/2019 Narrative [facility] - 08/26/2019 7:08 AM MECHANICAL ORDNANCE ASSEMBLER Performed at: 01 - [facility] [address] [id number] Fnps: Marv Jaquez PhD, Phone: [phone] us Solomon Kramer MD LAB MICROBIOLOGY - GENERAL ORD ERABLES Final Result [facility] - from Last 3 Months or Most Recently Relevant to Health Maintenance [place] Care Teams Tongue And Groove Machine Operator Relationship Specialty Start Date End Date Douglas Cordova DO PCP - General Internal Medicine 08/30/18 Jeremiah Foster MD Referring Physician Gastroenterology 10/06/19
--- OUTSIDE RECORDS SUMMARY | 2024-09-15 07:51 | XMS_ITS | Clinical Summary ---
Author Organization [facility] Care Team Providers Care Histopathologist Name Role Phone Unavailable Primary Care Provider Unavailabl e Social History Tobacco Use Types Packs/Day Years Used Date Smoking Tobacco: Never Assessed Sex and Gender Information Value Date Recorded Sex Assigned at Not on file Legal Sex Male 8:48 AM TAPE MAKER Gender Identity Not on file Sexual Orientation Not on file Plan of Treatment Health Maintenance Due Date Last Done Comments Hepatitis C Virus (HCV) Screening 1961 TdaP Immunization 1961 Colonoscopy 2006 Colorectal Cancer Screening 2006 Cologuard 2011 Immunochemical Fecal Occult Blood 2011 Pneumococcal Immunization (50+ years) (1 of 1 - PCV) 2011 Zoster Immunization (1 of 2) 2011 PSA Discussion 2016 Influenza Immunization (#1) 02/27/202410/2019, 04/09/2018, 04/09/2015, Additional history exists SARS-COV-2 Immunization ( - season) 2024 08/09/2020 Respiratory Syncytial Virus (RSV) Immunization (Adult) (1 - 1-dose 75+ series) 2036 Hepatitis B Immunization Aged Out No longer eligible based on patient's age to complete this topic Meningococcal Immunization (ACWY) Aged Out No longer eligible based on patient's age to complete this topic Pneumococcal Immunization Combined Aged Out No longer eligible based on patient's age to complete this topic Rotavirus Immunization Aged Out No lo nger eligible based on patient's age to complete this topic
[2024-09-15 08:14] LABS: Estimated Glomerular Filt Rate > 60
== END 2024-09-15 07:48 | disposition home or self-care (01) ==
PROVIDERS: PCP Internal Medicine; Visit Provider Nurse Practitioner
DX: K74.60 Unspecified cirrhosis of liver (principal); D73.9 Disease of spleen, unspecified
CPT/HCPCS: 74170; Q9967